=== PATIENT | female | born 1990 | race Caucasian/White ===

== ENCOUNTER 2019-09-14 21:15 | Emergency (ER) | payer OTHER ==
[~2019-09-14] VITALS: Ht 172.7 cm; Wt 98.9 kg
[2019-09-14 21:52] VITALS: BP 143/61
[2019-09-14 23:38] LABS: INFLUENZA A PATIENT NEGATIVE (NEGATIVE); INFLUENZA B PATIENT NEGATIVE (NEGATIVE)
[2019-09-15] MEDS ORDERED: AZIT250T6 PO (00:01)
--- NOTE | 2019-09-15 00:02 | PHYS DOC ---
Past Medical History Past Medical History: No Pertinent History (JOHN LOPEZ APRN) Past Surgical History: Cholecystectomy, (JOHN LOPEZ APRN) Alcohol Use: None Drug Use: None (JOHN LOPEZ APRN) Attending Signature I have participated in the care of this patient and I have reviewed and agree with all pertinent clinical information above including history, exam, and recommendations. (PATSY GRIMALDO MD) Adult General Chief Complaint Chief Complaint: EARACHE/EAR PAIN HPI HPI Patient is a 28 year old female who presents with 20 weeks states she's had nasal congestion, cough and ear pain for the last week. Patient denies fevers but states chills at times. (JOHN LOPEZ APRN) Review of Systems Review of Systems HENT: nasal congestion or sore throat [] Respiratory: cough or denies shortness of breath [] All other systems were reviewed and found to be within normal limits, except as documented in this note. (JOHN LOPEZ APRN) Allergies Allergies Allergies Coded Allergies Type Severity Reaction Last Updated Verified shilpa Allergy Intermediate 09/14/19 Yes turmeric Allergy Intermediate 09/14/19 Yes (PATSY GRIMALDO MD) Physical Exam Physical Exam Constitutional: Well developed, well nourished, no acute distress, non-toxic appearance. [] HENT: Normocephalic, atraumatic, bilateral external ears normal, oropharynx moist, no oral exudates, nose normal. Right ear tympanic red. [] Eyes: PERRLA, EOMI, conjunctiva normal, no discharge. [] Neck: Normal range of motion, no tenderness, supple, no stridor. [] Cardiovascular:Heart rate regular rhythm, no murmur [] Lungs & Thorax: Bilateral breath sounds clear to auscultation [] Abdomen: Bowel sounds normal, soft, no tenderness, no masses, no pulsatile masses. [] Skin: Warm, dry, no erythema, no rash. [] Back: No tenderness, no CVA tenderness. [] Extremities: No tenderness, no cyanosis, no clubbing, ROM intact, no edema. [] Neurologic: Alert and oriented X 3, normal motor function, normal sensory function, no focal deficits noted. [] Psychologic: Affect normal, judgement normal, mood normal. [] (JOHN LOPEZ APRN) Current Patient Data Vital Signs Vital Signs Date Time Temp Pulse Resp B/P (MAP) Pulse Ox O2 Delivery O2 Flow Rate FiO2 09/14/19 21:52 98.3 116 16 143/61 (88) 97 Room Air 98.3 (PATSY GRIMALDO MD) Lab Values Laboratory Tests Test 09/14/19 23:02 Influenza Type A Antigen Negative (NEGATIVE) Influenza Type B Antigen Negative (NEGATIVE) (PATSY GRIMALDO MD) EKG EKG [] (JOHN LOPEZ APRN) Radiology/Procedures Radiology/Procedures [] (JOHN LOPEZ APRN) Course & Med Decision Making Course & Med Decision Making Rates her pain an 8 out of 10. Lungs are clear to auscultation in all lobes. Right ear tympanic is reddened. Throat is pink without exudates or swelling. Abdomen is soft and nontender. Patient denies nausea, vomiting, dizziness, head ache, chest pain, shortness of breath, visual changes, numbness or tingling, abdominal pain, back pain, dysuria, vaginal bleeding. Skin pink warm and dry. Speaks in full clear sentences. Ambulatory with a steady gait. No extremity swelling. Patient is told to follow up with her primary care provider. Patient is told to take Tylenol to help with fever and pain. Influenza is negative. (JOHN LOPEZ APRN) Dragon Disclaimer Dragon Disclaimer This electronic medical record was generated, in whole or in part, using a voice recognition dictation system. (JOHN LOPEZ APRN) Departure Departure Impression: Primary Impression: Otitis media Disposition: 01 HOME, SELF-CARE Condition: STABLE Referrals: BERHANE BRAVO (PCP) Patient Instructions: Otitis Media, Child Additional Instructions: Follow-up with [facility]. Take medication as prescribed. Scripts Azithromycin (AZITHROMYCIN TABLET) 250 Mg Tablet 1 PKG PO UD for 5 Days, #6 TAB 0 Refills 2 the first day followed by 1 for days 2-5 Prov: JOHN LOPEZ APRN 09/15/19 Problem Qualifiers Primary Impression: Otitis media Otitis media type: suppurative Chronicity: acute Laterality: right Recurrence: non-recurrent Spontaneous tympanic membrane rupture: without spontaneous rupture Qualified Codes: H66.001 - Acute suppurative otitis media without spontaneous rupture of ear drum, right ear JOHN LOPEZ APRN Sep 15, 2019 00:02 PATSY GRIMALDO MD Sep 15, 2019 05:03
== END 2019-09-15 00:17 | disposition home or self-care (01) ==
LOC: ER 21:15
DX: O26.892 Other specified pregnancy related conditions, second trimester (principal); H66.001 Acute suppurative otitis media without spontaneous rupture of ear drum, right ear; R05 Cough; R09.81 Nasal congestion; Z3A.20 20 weeks gestation of pregnancy
CPT/HCPCS: 87804; 99284